=== PATIENT | female | born 1970 | race Caucasian/White ===

== ENCOUNTER 2018-09-19 17:51 | Inpatient (IN) | payer MEDICAID ==
[~2018-09-19] VITALS: Ht 167.6 cm; Wt 83.9 kg
[2018-09-19] MEDS ORDERED: NKM (18:02)
[2018-09-19 18:10] VITALS: BP 117/63
--- NOTE | 2018-09-19 18:10 | NUR ---
ED Nurse Note: pt came to ed c/o abdominal pain, N/V since today. pain 06/07. pt denies, taking medication. per pt she had apple cider vinegar today
[2018-09-19] MEDS ORDERED: Morphine Sulfate 4mg/ml Inj (IV/IM USE ONLY) IVP ONE ×2 (18:30→19:30)
[2018-09-19 18:41] LABS: APPEARANCE,URINE CLEAR; BILIRUBIN, URINE NEGATIVE (NEGATIVE); GLUCOSE, URINE (UA) NEGATIVE (NEGATIVE); KETONES,URINE 2+ (NEGATIVE); LEUKOCYTE ESTERASE ,URINE 1+ (NEGATIVE); NITRITE,URINE NEGATIVE (NEGATIVE); PH,URINE 5 (4.5-8.0); PROTEIN,URINE 2+ (NEGATIVE); UROBILINOGEN,URINE NORMAL MG/DL (0.0-1.0)
[2018-09-19 18:42] LABS: BASOPHILS % (AUTO) 0.9 % (0.0-2.0); EOSINOPHILS % (AUTO) 0.9 % (0.0-3.0); HEMATOCRIT 34.7 % (37.0-47.0); HEMOGLOBIN 10.6 G/DL (12.0-16.0); LYMPHOCYTES % (AUTO) 17.7 % (20.0-45.0); MEAN CORPUSCULAR VOLUME 81 FL (80-99); MONOCYTES % (AUTO) 5.6 % (1.0-10.0); PLATELET COUNT 391 K/UL (150-450); RED BLOOD COUNT 4.29 M/UL (4.20-5.40); RED CELL DISTRIBUTION WIDTH 14.5 % (11.6-14.8); WHITE BLOOD COUNT 16.3 K/UL (4.8-10.8)
--- NOTE | 2018-09-19 18:44 | Emergency Room Report ---
History of Present Illness General Chief Complaint: Abdominal Pain Source: Patient Present Illness HPI 48-year-old female no known medical problems other than possible gallstones, presents with right upper quadrant pain that started around 3 PM this afternoon after eating potato chips and notes, she reports nausea and vomiting multiple episodes, denies any lower abdominal pain, urinary complaints, diarrhea, constipation, reports she's never had any major surgeries otherwise has no known medical problems. Fevers chills, shortness of breath, any other complaints. She's not try medications for symptoms. Allergies: Coded Allergies: No Known Allergies (Unverified , 09/19/18) Patient History Past Medical History: see triage record Last Menstrual Period: 09/11/18 Now: No Reviewed Nursing Documentation: PMH: Agreed; PSxH: Agreed Nursing Documentation-PMH Past Medical History: No Stated History Review of Systems All Other Systems: negative except mentioned in HPI Physical Exam Vital Signs Date Time Temp Pulse Resp B/P (MAP) Pulse Ox O2 Delivery O2 Flow Rate FiO2 09/19/18 17:58 98.1 66 18 120/76 100 Room Air Sp02 EP Interpretation: reviewed, normal General Appearance: no apparent distress, alert, non-toxic Head: normocephalic Eyes: bilateral eye normal inspection, bilateral eye PERRL, bilateral eye EOMI ENT: normal ENT inspection, hearing grossly normal, normal pharynx, no angioedema, normal voice, moist mucus membranes Neck: normal inspection, full range of motion, supple, supple/symm/no masses Respiratory: chest non-tender, lungs clear, normal breath sounds, chest symmetrical, palpation of chest normal Cardiovascular #1: normal peripheral pulses, regular rate, rhythm Cardiovascular #2: 2+ radial (R), 2+ radial (L), 2+ dorsalis pedis (R), 2+ dorsalis pedis (L) Gastrointestinal: normal inspection, soft, no mass, no organomegaly, no peritonitis, non-distended, no guarding, no hernia, no pulsatile mass, no rebound, tenderness - +RUQ tenderness Rectal: deferred Genitourinary: normal inspection, no CVA tenderness Musculoskeletal: back normal, gait/station normal, normal range of motion, non- tender, no calf tenderness, Bridgette's Sign negative Neurologic: alert, responsive, protective signal installer III-XII nml as tested, motor strength/tone normal, sensory intact, speech normal Psychiatric: judgement/insight normal, memory normal, mood/affect normal Skin: normal color, no rash, warm/dry, normal turgor Lymphatic: no adenopathy Medical Decision Making Diagnostic Impression: Primary Impression: Acute cholecystitis ER Course Pat found to have wbc elevated, + gallstone in gb neck, given iv zosyn, iv KCL, Dr. Holley consulted, patient admitted to Dr. Taylor CT/MRI/US Diagnostic Results CT/MRI/US Diagnostic Results : Imaging Test Ordered: abd us Impression GS in gb neck Last Vital Signs Date Time Temp Pulse Resp B/P (MAP) Pulse Ox O2 Delivery O2 Flow Rate FiO2 09/19/18 18:10 98.1 72 14 117/63 99 Room Air Disposition: ADMITTED INPATIENT Condition: Stable EMILIO CALVERT M.D Sep 19, 2018 18:44
[2018-09-19 18:49] LABS: ALANINE AMINOTRANSFERASE 11 U/L (12-78); ALBUMIN 3.8 G/DL (3.4-5.0); ALBUMIN/GLOBULIN RATIO 1.1 (1.0-2.7); ALKALINE PHOSPHATASE 42 U/L (46-116); ANION GAP 17 mmol/L (5-15); ASPARTATE AMINO TRANSFERASE 12 U/L (15-37); BILIRUBIN,TOTAL 0.3 MG/DL (0.2-1.0); BLOOD UREA NITROGEN 8 mg/dL (7-18); CALCIUM 8.8 MG/DL (8.5-10.1); CARBON DIOXIDE 21 MMOL/L (21-32); CHLORIDE 102 MMOL/L (98-107); COLOR,URINE YELLOW; POTASSIUM 2.8 MMOL/L (3.5-5.1); SODIUM 139 MMOL/L (136-145)
--- NOTE | 2018-09-19 19:14 | NUR ---
ED Nurse Note: attempted to give telephone report to MS, unable to give report.
[2018-09-19] MEDS ORDERED: Piperacillin/Tazobactam 3.375 GM in NS 110 ML IVPB ONE (19:30)
[2018-09-19 20:55] VITALS: BP 114/76
--- NOTE | 2018-09-19 20:55 | NUR ---
ED Nurse Note: Patient transferred to med/surg unit. patient AOx4, VSS, ambulatory with steady gait, no s/s of acute distress noted at this time. Patient report given to Bonifacio BAUER. Patient sent with all personal belongings. Patient transferred on [facility], by [facility]. Patient tolerated transfer well.
--- NOTE | 2018-09-19 21:00 | NUR ---
NURSE NOTES: Pt transferred to unit via gurney w/aunt at bedside and all belongings accounted for. Pt A&Ox4, VSS, and in no apparent distress at this time. IV site intact/asymptomatic & skin intact. Pt has no c/o pain and is aware that she is to be NPO at midnight for possible surgery in the AM. Will contact MD for admission orders.
[2018-09-19 21:10] VITALS: BP 105/76
--- NOTE | 2018-09-19 21:12 | Consultation ---
History of Present Illness General Chief Complaint: Abdominal Pain Reason for Consultation: acute cholecystitis Present Illness HPI 48 year old female with known history of cholelithiasis presented with acute onset RUQ abdominal pain since lunchtime today. Pain associated with nausea and emesis. no fever or chills. In ED noted to have leukocytosis and US consistent with acute cholecystitis. lft's nml. lipase nml. Surgery called to evaluate. Allergies: Coded Allergies: No Known Allergies (Unverified , 09/19/18) Medication History Scheduled No Known Medications* (NKM - No Known Medications*), 0 ., (Reported) Patient History History Provided By: Patient, Medical Record, PMD Healthcare decision maker Resuscitation status Advanced Directive on File Past Medical/Surgical History Past Medical/Surgical History: (1) Acute cholecystitis Review of Systems All Other Systems: negative except mentioned in HPI Physical Exam General Appearance: no apparent distress, alert Lines, tubes and drains: peripheral HEENT: mucous membranes moist Neck: supple, normal inspection Cardiovascular/Chest: regular rhythm Abdomen: normal bowel sounds, non tender, soft, no organomegaly, no mass Extremities: normal inspection Skin Exam: warm/dry Neurologic: douper II-XII grossly normal Last 24 Hour Vital Signs Date Time Temp Pulse Resp B/P (MAP) Pulse Ox O2 Delivery O2 Flow Rate FiO2 09/19/18 20:55 98.1 73 18 114/76 99 Room Air 09/19/18 18:56 98.0 09/19/18 18:10 98.1 72 14 117/63 99 Room Air 09/19/18 18:10 72 14 09/19/18 17:58 98.1 66 18 120/76 100 Room Air Laboratory Tests Test 09/19/18 18:10 09/19/18 20:08 White Blood Count 16.3 K/UL (4.8-10.8) H Red Blood Count 4.29 M/UL (4.20-5.40) Hemoglobin 10.6 G/DL (12.0-16.0) L Hematocrit 34.7 % (37.0-47.0) L Mean Corpuscular Volume 81 FL (80-99) Mean Corpuscular Hemoglobin 24.7 PG (27.0-31.0) L Mean Corpuscular Hemoglobin Concent 30.6 G/DL (32.0-36.0) L Red Cell Distribution Width 14.5 % (11.6-14.8) Platelet Count 391 K/UL (150-450) Mean Platelet Volume 5.1 FL (6.5-10.1) L Neutrophils (%) (Auto) 75.0 % (45.0-75.0) Lymphocytes (%) (Auto) 17.7 % (20.0-45.0) L Monocytes (%) (Auto) 5.6 % (1.0-10.0) Eosinophils (%) (Auto) 0.9 % (0.0-3.0) Basophils (%) (Auto) 0.9 % (0.0-2.0) Urine Color Yellow Urine Appearance Clear Urine pH 5 (4.5-8.0) Urine Specific [place] 1.030 (1.005-1.035) Urine Protein 2+ (NEGATIVE) H Urine Glucose (UA) Negative (NEGATIVE) Urine Ketones 2+ (NEGATIVE) H Urine Blood 1+ (NEGATIVE) H Urine Nitrite Negative (NEGATIVE) Urine Bilirubin Negative (NEGATIVE) Urine Urobilinogen Normal MG/DL (0.0-1.0) Urine Leukocyte Esterase 1+ (NEGATIVE) H Urine RBC 2-4 /HPF (0 - 2) H Urine WBC 2-4 /HPF (0 - 2) Urine Squamous Epithelial Cells Few /LPF (NONE/OCC) Urine Calcium Oxalate Crystals Few /LPF (NONE) Urine Amorphous Sediment Few /LPF (NONE) H Urine Bacteria Moderate /HPF (NONE) H Urine HCG, Qualitative Negative (NEGATIVE) Sodium Level 139 MMOL/L (136-145) Potassium Level 2.8 MMOL/L (3.5-5.1) L Chloride Level 102 MMOL/L (98-107) Carbon Dioxide Level 21 MMOL/L (21-32) Anion Gap 17 mmol/L (5-15) H Blood Urea Nitrogen 8 mg/dL (7-18) Creatinine 1.0 MG/DL (0.55-1.30) Estimat Glomerular Filtration Rate 59.2 mL/min (>60) Glucose Level 155 MG/DL (74-106) H Calcium Level 8.8 MG/DL (8.5-10.1) Total Bilirubin 0.3 MG/DL (0.2-1.0) Aspartate Amino Transf (AST/SGOT) 12 U/L (15-37) L Alanine Aminotransferase (ALT/SGPT) 11 U/L (12-78) L Alkaline Phosphatase 42 U/L (46-116) L Total Protein 7.2 G/DL (6.4-8.2) Albumin 3.8 G/DL (3.4-5.0) Globulin 3.4 g/dL Albumin/Globulin Ratio 1.1 (1.0-2.7) Lipase 151 U/L (73-393) Prothrombin Time 10.1 SEC (9.30-11.50) Prothromb Time International Ratio 1.0 (0.9-1.1) Activated Partial Thromboplast Time 25 SEC (23-33) Height (Feet): 5 Height (Inches): 6.00 Weight (Pounds): 185 Medications Current Medications Medications (Trade) Dose Ordered Sig/Blaze Route PRN Reason Start Time Stop Time Status Last Admin Dose Admin Potassium Chloride 100 ml @ 50 mls/hr ONCE ONCE IVPB 09/19/18 19:30 09/19/18 21:29 09/19/18 20:54 Assessment/Plan Problem List: (1) Acute cholecystitis Assessment & Plan: Acute cholecystitis leukocytosis lft's nml lipase nml US noted -NPO -IV fluids -IV Abx -AM labs -Rx as written -HIDA ordered will follow with recs. thank you ICD Codes: K81.0 - Acute cholecystitis SNOMED: [id number] Damien Holley Sep 19, 2018 21:12
[2018-09-19] MEDS ORDERED: Morphine Sulfate 4mg/ml Inj (IV/IM USE ONLY) IVP PRN ×3 (21:15)
[2018-09-19] MEDS ORDERED: Mylanta II UD 30ml ORAL PRN (21:15)
[2018-09-20 00:27] VITALS: BP 111/73
[2018-09-20 04:14] VITALS: BP 98/59
[2018-09-20] MEDS: Piperacillin/Tazobactam 3.375 GM in NS 110 ML IVPB SCH ×3 (06:03→21:11)
[2018-09-20 07:14] LABS: BASOPHILS % (AUTO) 0.7 % (0.0-2.0); EOSINOPHILS % (AUTO) 0.7 % (0.0-3.0); HEMATOCRIT 31.5 % (37.0-47.0); LYMPHOCYTES % (AUTO) 19.9 % (20.0-45.0); MEAN CORPUSCULAR VOLUME 80 FL (80-99); MONOCYTES % (AUTO) 7.2 % (1.0-10.0); NEUTROPHILS % (AUTO) 71.4 % (45.0-75.0); PLATELET COUNT 288 K/UL (150-450); RED BLOOD COUNT 3.92 M/UL (4.20-5.40); RED CELL DISTRIBUTION WIDTH 15.2 % (11.6-14.8); WHITE BLOOD COUNT 8.2 K/UL (4.8-10.8)
--- NOTE | 2018-09-20 07:16 | NUR ---
HAND-OFF: Report given to JUANCARLOS Correa.
--- NOTE | 2018-09-20 07:18 | NUR ---
NURSE NOTES: Received report from Bharti BAUER. patient in bed awake, alert, oriented, verbally responsive. no distress noted. no c/o pain at this time. bed in lowest position. call light within reach. will continue to monitor.
[2018-09-20 07:24] LABS: PHOSPHORUS 3.2 MG/DL (2.5-4.9)
[2018-09-20 07:30] LABS: ALANINE AMINOTRANSFERASE 68 U/L (12-78); ALBUMIN 3.1 G/DL (3.4-5.0); ALKALINE PHOSPHATASE 40 U/L (46-116); ANION GAP 9 mmol/L (5-15); ASPARTATE AMINO TRANSFERASE 111 U/L (15-37); BILIRUBIN,TOTAL 0.6 MG/DL (0.2-1.0); BLOOD UREA NITROGEN 5 mg/dL (7-18); CALCIUM 8.2 MG/DL (8.5-10.1); CARBON DIOXIDE 24 MMOL/L (21-32); CHLORIDE 108 MMOL/L (98-107); CREATININE 0.7 MG/DL (0.55-1.30); POTASSIUM 3.7 MMOL/L (3.5-5.1); SODIUM 141 MMOL/L (136-145)
[2018-09-20 08:00] VITALS: BP 103/66
[2018-09-20] MEDS ORDERED: NS w/KCl 40mEq 1,000 ML IV SCH ×2 (08:00)
--- NOTE | 2018-09-20 10:18 | Diagnostic Imaging Report ---
Indication: Abdominal pain, abnormal liver function tests, abnormal lipase Technique: Davis-scale and duplex images of the upper abdomen were obtained. Doppler interrogation of the hepatic and pancreatic vessels Comparison: none Findings: Gallbladder demonstrates a gallstone. No gallbladder wall thickening nor pericholecystic fluid Sonographic Wilson's sign is negative. Common bile duct measures 4 mm in diameter. No intrahepatic biliary ductal dilatation. Liver demonstrates normal echogenicity, no focal abnormality. Portal vein and hepatic veins are patent. Pancreas is unremarkable. Spleen is unremarkable. Left kidney measures 11.1 cm in length. Right kidney measures 11.6 cm length. Both kidneys demonstrate normal echogenicity. There is no hydronephrosis. No focal abnormality . Non-aneurysmal abdominal aorta . Impression: Cholelithiasis. Negative for dilated ducts No other significant abnormality This agrees with the preliminary interpretation provided [facility].
--- NOTE | 2018-09-20 10:48 | GI Initial Consult Note ---
History of Present Illness General Date patient seen: Sep 20, 2018 Time patient seen: 10:42 Reason for Hospitalization: Abdominal Pain Referring physician: CHAPARRITA DICKINSON Reason for Consultation: acute cholecystitis Present Illness HPI 48-year-old female no known medical problems other than possible gallstones, presents with right upper quadrant pain that started around 3 PM this afternoon after eating potato chips and notes, she reports nausea and vomiting multiple episodes, denies any lower abdominal pain, urinary complaints, diarrhea, constipation, reports she's never had any major surgeries otherwise has no known medical problems. Fevers chills, shortness of breath, any other complaints. She's not try medications for symptoms. GI consulted for abdominal pain. Initial HPI as noted above. Patient seen, awake alert and oriented x4 no apparent distress. Denied any nausea or vomiting. Denied any constipation or diarrhea. The patient stated she had initial right upper quadrant pain which has subsided at this time. Patient recalled she had a previous similar episode, however was not as severe as the most current. The patient denies any past medical history and states this is her first time in the hospital. Patient has no history of endoscopic or colonoscopy. At the time, the patient prefers not to have any surgical intervention. Patient denies any abuse of alcohol, tobacco, or drugs. Labs reviewed; patient presents today with hypochromic anemia, elevated AST. An abdominal ultrasound was performed in the ED noted with cholelithiasis and the cystic duct. Home Meds Reported Medications No Known Medications* (NKM - No Known Medications*) ., 0 ., 0 Refills 09/19/18 Med list reviewed/reconciled: Yes Allergies: Coded Allergies: No Known Allergies (Unverified , 09/19/18) Patient History History Provided By: Patient, Medical Record PMH Narrative Past Medical History: see triage record Last Menstrual Period: 09/11/18 Now: No Reviewed Nursing Documentation: PMH: Agreed; PSxH: Agreed Nursing Documentation-PMH Past Medical History: No Stated History Social History: Denies: smoking, alcohol use, drug use, other Review of Systems All Other Systems: negative except mentioned in HPI Physical Exam Vital Signs Date Time Temp Pulse Resp B/P (MAP) Pulse Ox O2 Delivery O2 Flow Rate FiO2 09/19/18 17:58 98.1 66 18 120/76 100 Room Air Sp02 EP Interpretation: reviewed, normal Labs Laboratory Tests Test 09/19/18 18:10 09/19/18 20:08 09/20/18 05:10 White Blood Count 16.3 K/UL (4.8-10.8) H 8.2 K/UL (4.8-10.8) Red Blood Count 4.29 M/UL (4.20-5.40) 3.92 M/UL (4.20-5.40) L Hemoglobin 10.6 G/DL (12.0-16.0) L 10.0 G/DL (12.0-16.0) L Hematocrit 34.7 % (37.0-47.0) L 31.5 % (37.0-47.0) L Mean Corpuscular Volume 81 FL (80-99) 80 FL (80-99) Mean Corpuscular Hemoglobin 24.7 PG (27.0-31.0) L 25.5 PG (27.0-31.0) L Mean Corpuscular Hemoglobin Concent 30.6 G/DL (32.0-36.0) L 31.7 G/DL (32.0-36.0) L Red Cell Distribution Width 14.5 % (11.6-14.8) 15.2 % (11.6-14.8) H Platelet Count 391 K/UL (150-450) 288 K/UL (150-450) Mean Platelet Volume 5.1 FL (6.5-10.1) L 5.2 FL (6.5-10.1) L Neutrophils (%) (Auto) 75.0 % (45.0-75.0) 71.4 % (45.0-75.0) Lymphocytes (%) (Auto) 17.7 % (20.0-45.0) L 19.9 % (20.0-45.0) L Monocytes (%) (Auto) 5.6 % (1.0-10.0) 7.2 % (1.0-10.0) Eosinophils (%) (Auto) 0.9 % (0.0-3.0) 0.7 % (0.0-3.0) Basophils (%) (Auto) 0.9 % (0.0-2.0) 0.7 % (0.0-2.0) Urine Color Yellow Urine Appearance Clear Urine pH 5 (4.5-8.0) Urine Specific [place] 1.030 (1.005-1.035) Urine Protein 2+ (NEGATIVE) H Urine Glucose (UA) Negative (NEGATIVE) Urine Ketones 2+ (NEGATIVE) H Urine Blood 1+ (NEGATIVE) H Urine Nitrite Negative (NEGATIVE) Urine Bilirubin Negative (NEGATIVE) Urine Urobilinogen Normal MG/DL (0.0-1.0) Urine Leukocyte Esterase 1+ (NEGATIVE) H Urine RBC 2-4 /HPF (0 - 2) H Urine WBC 2-4 /HPF (0 - 2) Urine Squamous Epithelial Cells Few /LPF (NONE/OCC) Urine Calcium Oxalate Crystals Few /LPF (NONE) Urine Amorphous Sediment Few /LPF (NONE) H Urine Bacteria Moderate /HPF (NONE) H Urine HCG, Qualitative Negative (NEGATIVE) Sodium Level 139 MMOL/L (136-145) 141 MMOL/L (136-145) Potassium Level 2.8 MMOL/L (3.5-5.1) L 3.7 MMOL/L (3.5-5.1) Chloride Level 102 MMOL/L (98-107) 108 MMOL/L (98-107) H Carbon Dioxide Level 21 MMOL/L (21-32) 24 MMOL/L (21-32) Anion Gap 17 mmol/L (5-15) H 9 mmol/L (5-15) Blood Urea Nitrogen 8 mg/dL (7-18) 5 mg/dL (7-18) L Creatinine 1.0 MG/DL (0.55-1.30) 0.7 MG/DL (0.55-1.30) Estimat Glomerular Filtration Rate 59.2 mL/min (>60) > 60 mL/min (>60) Glucose Level 155 MG/DL (74-106) H 76 MG/DL (74-106) Calcium Level 8.8 MG/DL (8.5-10.1) 8.2 MG/DL (8.5-10.1) L Total Bilirubin 0.3 MG/DL (0.2-1.0) 0.6 MG/DL (0.2-1.0) Aspartate Amino Transf (AST/SGOT) 12 U/L (15-37) L 111 U/L (15-37) H Alanine Aminotransferase (ALT/SGPT) 11 U/L (12-78) L 68 U/L (12-78) Alkaline Phosphatase 42 U/L (46-116) L 40 U/L (46-116) L C-Reactive Protein, Quantitative < 0.4 mg/dL (0.00-0.90) Total Protein 7.2 G/DL (6.4-8.2) 6.1 G/DL (6.4-8.2) L Albumin 3.8 G/DL (3.4-5.0) 3.1 G/DL (3.4-5.0) L Globulin 3.4 g/dL 3.0 g/dL Albumin/Globulin Ratio 1.1 (1.0-2.7) 1.0 (1.0-2.7) Lipase 151 U/L (73-393) Prothrombin Time 10.1 SEC (9.30-11.50) 10.4 SEC (9.30-11.50) Prothromb Time International Ratio 1.0 (0.9-1.1) 1.0 (0.9-1.1) Activated Partial Thromboplast Time 25 SEC (23-33) 25 SEC (23-33) Phosphorus Level 3.2 MG/DL (2.5-4.9) Magnesium Level 1.7 MG/DL (1.8-2.4) L General Appearance: well appearing, no apparent distress, alert Head: normocephalic EENT: PERRL/EOMI, normal ENT inspection Neck: supple Respiratory: normal breath sounds, no respiratory distress Cardiovascular: normal rate Gastrointestinal: normal inspection, non tender, soft, normal bowel sounds, non -distended Rectal: deferred Genitourinary: no CVA tenderness Musculoskeletal: normal inspection, back normal Neurologic: normal inspection, alert, oriented x3, responsive Psychiatric: normal inspection, judgement/insight normal, memory normal Skin: normal inspection, normal color, no rash, warm/dry, palpation normal, well hydrated Lymphatic: normal inspection, no adenopathy Current Medications Current Medications Medications (Trade) Dose Ordered Sig/Blaze Route PRN Reason Start Time Stop Time Status Last Admin Dose Admin Acetaminophen (Tylenol) 650 mg Q4H PRN ORAL fever 09/19/18 21:15 10/19/18 21:14 Al Hydroxide/Mg Hydroxide (Mylanta II) 30 ml Q6H PRN ORAL dyspepsia 09/19/18 21:15 10/19/18 21:14 Dextrose (Dextrose 50%) 25 ml Q30M PRN IV Hypoglycemia 09/19/18 21:15 10/19/18 21:14 Dextrose (Dextrose 50%) 50 ml Q30M PRN IV Hypoglycemia 09/19/18 21:15 10/19/18 21:14 Diphenhydramine HCl (Benadryl) 25 mg Q6H PRN ORAL Itching/Pruritis 09/19/18 21:15 10/19/18 21:14 Famotidine (Pepcid I.v.) 20 mg Q12HR IVP 09/20/18 09:00 10/20/18 08:59 09/20/18 09:03 Morphine Sulfate (Morphine Sulfate) 1 mg Q4H PRN IVP mild pain 09/19/18 21:15 09/26/18 21:14 Morphine Sulfate (Morphine Sulfate) 2 mg Q4H PRN IVP Moderate Pain (Pain Scale 4-6) 09/19/18 21:15 09/26/18 21:14 09/20/18 02:00 Morphine Sulfate (Morphine Sulfate) 4 mg Q4H PRN IVP Severe Pain (Pain Scale 7-10) 09/19/18 21:15 09/26/18 21:14 Ondansetron HCl (Zofran) 4 mg Q6H PRN IVP Nausea & Vomiting 09/19/18 21:15 10/19/18 21:14 Piperacillin Sod/ Tazobactam Sod 3.375 gm/Sodium Chloride 110 ml @ 27.5 mls/hr EVERY 8 HOURS IVPB 09/20/18 06:00 09/27/18 05:59 09/20/18 06:03 Sodium Chloride 1,000 ml @ 100 mls/hr Q10H IV 09/20/18 08:00 10/20/18 00:00 09/20/18 09:03 Temazepam (Restoril) 15 mg HSPRN PRN ORAL Insomnia 09/19/18 21:15 09/26/18 21:14 GI: Plan Problems: (1) Abdominal pain (2) Transaminitis (3) Electrolyte imbalance (4) Acute cholecystitis Plan Abdominal ultrasound reviewed, noted with cholelithiasis. Patient is scheduled for a HIDA scan today We will consider endoscopy if necessary Follow-up surgical recommendations anemia work up OB stool r/o GI bleed monitor H&H, prn transfusions bowel regime ppi fu labs Discussed with Dr. Chen. Thank you for this patient referral, we will follow. The patient was seen and examined at bedside and all new and available data was reviewed in the patients chart. I agree with the above findings, impression and plan. (Patient seen earlier today. Signature stamp does not reflect patient encounter time.). - MD Genia BaldwinMountain Vista Medical CenterRafat BUSINESS CONTROL SPECIALIST Sep 20, 2018 10:48
--- NOTE | 2018-09-20 11:34 | NUR ---
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 99.0 HR 66 RR 18 B/P 120/76 WBC 16.3 K 2.8 UA+ KETONES,BLOOD,LEUKOCYTE ESTERASE,RBC,BACTERIA ABD US= CHOLELITHIASIS IS: ZOFRAN IV ZOSYN IV NS BOLUS X 1 LITER MORPHINE IV K-DUR PO ADMITTED TO MED/SURG @ 2054 MED/SURG STATUS
--- NOTE | 2018-09-20 12:34 | NUR ---
HIDA Scan complete.
[2018-09-20 12:36] VITALS: BP 116/72
--- NOTE | 2018-09-20 13:09 | Diagnostic Imaging Report ---
Indications: Abdominal pain Technique: IV administration 5.5 mCi 99 M technetium Choletec. Serial images obtained over the abdomen for 2 hrs . 4 mg of morphine given 65 minutes postinjection Comparison: Reference made to abdominal ultrasound 09/19/2018 Findings: Prompt tracer uptake within the liver. Extrahepatic bile ducts are seen at 10 minutes. Excretion into the duodenum demonstrated at 19 minutes. Gallbladder visualized at 7 minutes after morphine injection . Proximal small bowel loops appear dilated. Impression: Negative for evidence of cystic duct obstruction or common bile duct obstruction Possible proximal small bowel dilatation
--- NOTE | 2018-09-20 14:07 | Surgery Progress Note ---
Surgery Progress Note Subjective Symptoms: improved, pain absent, tolerating diet, passing flatus Additional Comments HIDA negative. pain resolved. no complaints. Objective Last 24 Hour Vital Signs Date Time Temp Pulse Resp B/P (MAP) Pulse Ox O2 Delivery O2 Flow Rate FiO2 09/20/18 12:36 99.4 76 18 116/72 (87) 99 09/20/18 09:00 Room Air 09/20/18 08:00 98.8 70 18 103/66 (78) 99 09/20/18 04:14 98.5 73 19 98/59 (72) 100 09/20/18 00:27 97.7 75 18 111/73 (86) 99 09/19/18 22:32 Room Air 09/19/18 21:12 97.5 09/19/18 21:10 97.5 80 17 105/76 (86) 100 09/19/18 20:55 98.1 73 18 114/76 99 Room Air 09/19/18 20:55 98.1 73 18 114/76 99 Room Air 09/19/18 18:56 98.0 09/19/18 18:10 98.1 72 14 117/63 99 Room Air 09/19/18 18:10 72 14 09/19/18 17:58 98.1 66 18 120/76 100 Room Air I&O Intake and Output 09/19/18 09/20/18 19:00 07:00 Intake Total 700 ml Balance 700 ml Intake IV Total 700 ml # Voids 1 3 Drains: none Cardiovascular: RSR Respiratory: clear Abdomen: soft, flat, non-tender, absent bowel sounds, non-distended Extremities: no cyanosis Laboratory Tests Test 09/19/18 18:10 09/19/18 20:08 09/20/18 05:10 White Blood Count 16.3 K/UL (4.8-10.8) H 8.2 K/UL (4.8-10.8) Red Blood Count 4.29 M/UL (4.20-5.40) 3.92 M/UL (4.20-5.40) L Hemoglobin 10.6 G/DL (12.0-16.0) L 10.0 G/DL (12.0-16.0) L Hematocrit 34.7 % (37.0-47.0) L 31.5 % (37.0-47.0) L Mean Corpuscular Volume 81 FL (80-99) 80 FL (80-99) Mean Corpuscular Hemoglobin 24.7 PG (27.0-31.0) L 25.5 PG (27.0-31.0) L Mean Corpuscular Hemoglobin Concent 30.6 G/DL (32.0-36.0) L 31.7 G/DL (32.0-36.0) L Red Cell Distribution Width 14.5 % (11.6-14.8) 15.2 % (11.6-14.8) H Platelet Count 391 K/UL (150-450) 288 K/UL (150-450) Mean Platelet Volume 5.1 FL (6.5-10.1) L 5.2 FL (6.5-10.1) L Neutrophils (%) (Auto) 75.0 % (45.0-75.0) 71.4 % (45.0-75.0) Lymphocytes (%) (Auto) 17.7 % (20.0-45.0) L 19.9 % (20.0-45.0) L Monocytes (%) (Auto) 5.6 % (1.0-10.0) 7.2 % (1.0-10.0) Eosinophils (%) (Auto) 0.9 % (0.0-3.0) 0.7 % (0.0-3.0) Basophils (%) (Auto) 0.9 % (0.0-2.0) 0.7 % (0.0-2.0) Urine Color Yellow Urine Appearance Clear Urine pH 5 (4.5-8.0) Urine Specific [place] 1.030 (1.005-1.035) Urine Protein 2+ (NEGATIVE) H Urine Glucose (UA) Negative (NEGATIVE) Urine Ketones 2+ (NEGATIVE) H Urine Blood 1+ (NEGATIVE) H Urine Nitrite Negative (NEGATIVE) Urine Bilirubin Negative (NEGATIVE) Urine Urobilinogen Normal MG/DL (0.0-1.0) Urine Leukocyte Esterase 1+ (NEGATIVE) H Urine RBC 2-4 /HPF (0 - 2) H Urine WBC 2-4 /HPF (0 - 2) Urine Squamous Epithelial Cells Few /LPF (NONE/OCC) Urine Calcium Oxalate Crystals Few /LPF (NONE) Urine Amorphous Sediment Few /LPF (NONE) H Urine Bacteria Moderate /HPF (NONE) H Urine HCG, Qualitative Negative (NEGATIVE) Sodium Level 139 MMOL/L (136-145) 141 MMOL/L (136-145) Potassium Level 2.8 MMOL/L (3.5-5.1) L 3.7 MMOL/L (3.5-5.1) Chloride Level 102 MMOL/L (98-107) 108 MMOL/L (98-107) H Carbon Dioxide Level 21 MMOL/L (21-32) 24 MMOL/L (21-32) Anion Gap 17 mmol/L (5-15) H 9 mmol/L (5-15) Blood Urea Nitrogen 8 mg/dL (7-18) 5 mg/dL (7-18) L Creatinine 1.0 MG/DL (0.55-1.30) 0.7 MG/DL (0.55-1.30) Estimat Glomerular Filtration Rate 59.2 mL/min (>60) > 60 mL/min (>60) Glucose Level 155 MG/DL (74-106) H 76 MG/DL (74-106) Calcium Level 8.8 MG/DL (8.5-10.1) 8.2 MG/DL (8.5-10.1) L Total Bilirubin 0.3 MG/DL (0.2-1.0) 0.6 MG/DL (0.2-1.0) Aspartate Amino Transf (AST/SGOT) 12 U/L (15-37) L 111 U/L (15-37) H Alanine Aminotransferase (ALT/SGPT) 11 U/L (12-78) L 68 U/L (12-78) Alkaline Phosphatase 42 U/L (46-116) L 40 U/L (46-116) L C-Reactive Protein, Quantitative < 0.4 mg/dL (0.00-0.90) Total Protein 7.2 G/DL (6.4-8.2) 6.1 G/DL (6.4-8.2) L Albumin 3.8 G/DL (3.4-5.0) 3.1 G/DL (3.4-5.0) L Globulin 3.4 g/dL 3.0 g/dL Albumin/Globulin Ratio 1.1 (1.0-2.7) 1.0 (1.0-2.7) Lipase 151 U/L (73-393) Prothrombin Time 10.1 SEC (9.30-11.50) 10.4 SEC (9.30-11.50) Prothromb Time International Ratio 1.0 (0.9-1.1) 1.0 (0.9-1.1) Activated Partial Thromboplast Time 25 SEC (23-33) 25 SEC (23-33) Phosphorus Level 3.2 MG/DL (2.5-4.9) Magnesium Level 1.7 MG/DL (1.8-2.4) L Plan Problems: (1) Acute cholecystitis Assessment & Plan: Acute cholecystitis leukocytosis lft's nml lipase nml US noted HIDA negative labs normal today diet d/c home f/u with pcp will follow with recs. thank you Damien Holley Sep 20, 2018 14:07
[2018-09-20 16:00] VITALS: BP 97/57
--- NOTE | 2018-09-20 16:30 | Consultation ---
DATE OF CONSULTATION: 09/20/2018 INFECTIOUS DISEASES CONSULTATION CONSULTING PHYSICIAN: Quique Hampton M.D. PRIMARY ATTENDING PHYSICIAN: Bee Taylor M.D. REASON FOR CONSULTATION: Acute cholecystitis. HISTORY OF PRESENT ILLNESS: This is a 48-year-old female admitted yesterday complaining of nausea, vomiting, right upper quadrant pain that started after lunch yesterday. The patient was found to have gallstone, had leukocytosis of 16.3 at the time of admission, today it is better, has no pain. PAST MEDICAL HISTORY: None significant, never in the hospital. ALLERGIES: No known drug allergies. MEDICATIONS: Getting Pepcid, sodium chloride, Zosyn, Tylenol, morphine, Zofran, temazepam, Mylanta, diphenhydramine. SOCIAL HISTORY: Denies alcohol, drug abuse, smoking. 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 REVIEW OF SYSTEMS: As per history of present illness. Currently no complaints. PHYSICAL EXAMINATION: VITAL SIGNS: Temperature 98.8, pulse 70, blood pressure 103/66. GENERAL APPEARANCE: No acute distress, well-developed. HEAD AND NECK: [place] conjunctiva. No oral lesion. HEART: S1 and S2 regular. LUNGS: Clear ABDOMEN: Soft and nontender. EXTREMITIES: No edema. LABORATORY AND DIAGNOSTIC DATA: WBC today is 8.2 coming down from 16.3, hemoglobin 10, hematocrit 31.5, platelet 288. Sodium 141, potassium 3.7, chloride 108, bicarb 24, BUN 5, creatinine 0.7, AST elevated 111, alkaline phosphatase is low at 40, AST is normal. Abdominal ultrasound cholelithiasis, negative for dilated ducts. IMPRESSION: 1. Cholelithiasis, acute cholecystitis. 2. The patient has anemia. RECOMMENDATION: Continue Zosyn. We will follow up HIDA scan. At the end of my exam, I thank Dr. Taylor, for involving me in the care of this patient. Quique Hampton M.D. DR: Law JOB#: [id number] CC:
--- NOTE | 2018-09-20 16:45 | NUR ---
NURSE NOTES: Patient was cleared by Dr. Holley. Notified Dr. Taylor but not dischage today with other issues. patient aware and verbally understood.
[2018-09-20] MEDS ORDERED: NS 275ml ONE (16:51)
[2018-09-20] MEDS ORDERED: Tubing IV Secondary IV ONE (16:51)
--- NOTE | 2018-09-20 17:07 | Consultation ---
History of Present Illness General Chief Complaint: Abdominal Pain Referring physician: CHAPARRITA DICKINSON Reason for Consultation: acute cholecystitis Present Illness Allergies: Coded Allergies: No Known Allergies (Unverified , 09/19/18) Medication History Scheduled No Known Medications* (NKM - No Known Medications*), 0 ., (Reported) Patient History Healthcare decision maker Resuscitation status Full Code Advanced Directive on File Physical Exam Last 24 Hour Vital Signs Date Time Temp Pulse Resp B/P (MAP) Pulse Ox O2 Delivery O2 Flow Rate FiO2 09/20/18 16:00 99.0 69 18 97/57 (70) 99 09/20/18 12:36 99.4 76 18 116/72 (87) 99 09/20/18 09:00 Room Air 09/20/18 08:00 98.8 70 18 103/66 (78) 99 09/20/18 04:14 98.5 73 19 98/59 (72) 100 09/20/18 00:27 97.7 75 18 111/73 (86) 99 09/19/18 22:32 Room Air 09/19/18 21:12 97.5 09/19/18 21:10 97.5 80 17 105/76 (86) 100 09/19/18 20:55 98.1 73 18 114/76 99 Room Air 09/19/18 20:55 98.1 73 18 114/76 99 Room Air 09/19/18 18:56 98.0 09/19/18 18:10 98.1 72 14 117/63 99 Room Air 09/19/18 18:10 72 14 09/19/18 17:58 98.1 66 18 120/76 100 Room Air Intake and Output 09/19/18 09/20/18 19:00 07:00 Intake Total 700 ml Balance 700 ml Intake IV Total 700 ml # Voids 1 3 Laboratory Tests Test 09/19/18 18:10 09/19/18 20:08 09/20/18 05:10 White Blood Count 16.3 K/UL (4.8-10.8) H 8.2 K/UL (4.8-10.8) Red Blood Count 4.29 M/UL (4.20-5.40) 3.92 M/UL (4.20-5.40) L Hemoglobin 10.6 G/DL (12.0-16.0) L 10.0 G/DL (12.0-16.0) L Hematocrit 34.7 % (37.0-47.0) L 31.5 % (37.0-47.0) L Mean Corpuscular Volume 81 FL (80-99) 80 FL (80-99) Mean Corpuscular Hemoglobin 24.7 PG (27.0-31.0) L 25.5 PG (27.0-31.0) L Mean Corpuscular Hemoglobin Concent 30.6 G/DL (32.0-36.0) L 31.7 G/DL (32.0-36.0) L Red Cell Distribution Width 14.5 % (11.6-14.8) 15.2 % (11.6-14.8) H Platelet Count 391 K/UL (150-450) 288 K/UL (150-450) Mean Platelet Volume 5.1 FL (6.5-10.1) L 5.2 FL (6.5-10.1) L Neutrophils (%) (Auto) 75.0 % (45.0-75.0) 71.4 % (45.0-75.0) Lymphocytes (%) (Auto) 17.7 % (20.0-45.0) L 19.9 % (20.0-45.0) L Monocytes (%) (Auto) 5.6 % (1.0-10.0) 7.2 % (1.0-10.0) Eosinophils (%) (Auto) 0.9 % (0.0-3.0) 0.7 % (0.0-3.0) Basophils (%) (Auto) 0.9 % (0.0-2.0) 0.7 % (0.0-2.0) Urine Color Yellow Urine Appearance Clear Urine pH 5 (4.5-8.0) Urine Specific Hurricane 1.030 (1.005-1.035) Urine Protein 2+ (NEGATIVE) H Urine Glucose (UA) Negative (NEGATIVE) Urine Ketones 2+ (NEGATIVE) H Urine Blood 1+ (NEGATIVE) H Urine Nitrite Negative (NEGATIVE) Urine Bilirubin Negative (NEGATIVE) Urine Urobilinogen Normal MG/DL (0.0-1.0) Urine Leukocyte Esterase 1+ (NEGATIVE) H Urine RBC 2-4 /HPF (0 - 2) H Urine WBC 2-4 /HPF (0 - 2) Urine Squamous Epithelial Cells Few /LPF (NONE/OCC) Urine Calcium Oxalate Crystals Few /LPF (NONE) Urine Amorphous Sediment Few /LPF (NONE) H Urine Bacteria Moderate /HPF (NONE) H Urine HCG, Qualitative Negative (NEGATIVE) Sodium Level 139 MMOL/L (136-145) 141 MMOL/L (136-145) Potassium Level 2.8 MMOL/L (3.5-5.1) L 3.7 MMOL/L (3.5-5.1) Chloride Level 102 MMOL/L (98-107) 108 MMOL/L (98-107) H Carbon Dioxide Level 21 MMOL/L (21-32) 24 MMOL/L (21-32) Anion Gap 17 mmol/L (5-15) H 9 mmol/L (5-15) Blood Urea Nitrogen 8 mg/dL (7-18) 5 mg/dL (7-18) L Creatinine 1.0 MG/DL (0.55-1.30) 0.7 MG/DL (0.55-1.30) Estimat Glomerular Filtration Rate 59.2 mL/min (>60) > 60 mL/min (>60) Glucose Level 155 MG/DL (74-106) H 76 MG/DL (74-106) Calcium Level 8.8 MG/DL (8.5-10.1) 8.2 MG/DL (8.5-10.1) L Total Bilirubin 0.3 MG/DL (0.2-1.0) 0.6 MG/DL (0.2-1.0) Aspartate Amino Transf (AST/SGOT) 12 U/L (15-37) L 111 U/L (15-37) H Alanine Aminotransferase (ALT/SGPT) 11 U/L (12-78) L 68 U/L (12-78) Alkaline Phosphatase 42 U/L (46-116) L 40 U/L (46-116) L C-Reactive Protein, Quantitative < 0.4 mg/dL (0.00-0.90) Total Protein 7.2 G/DL (6.4-8.2) 6.1 G/DL (6.4-8.2) L Albumin 3.8 G/DL (3.4-5.0) 3.1 G/DL (3.4-5.0) L Globulin 3.4 g/dL 3.0 g/dL Albumin/Globulin Ratio 1.1 (1.0-2.7) 1.0 (1.0-2.7) Lipase 151 U/L (73-393) Prothrombin Time 10.1 SEC (9.30-11.50) 10.4 SEC (9.30-11.50) Prothromb Time International Ratio 1.0 (0.9-1.1) 1.0 (0.9-1.1) Activated Partial Thromboplast Time 25 SEC (23-33) 25 SEC (23-33) Phosphorus Level 3.2 MG/DL (2.5-4.9) Magnesium Level 1.7 MG/DL (1.8-2.4) L Microbiology Date/Time Source Procedure Growth Status 09/19/18 18:10 Urine,Clean Catch Urine Culture - Preliminary NO GROWTH Resulted Height (Feet): 5 Height (Inches): 6.00 Weight (Pounds): 185 Medications Current Medications Medications (Trade) Dose Ordered Sig/Blaze Route PRN Reason Start Time Stop Time Status Last Admin Dose Admin Acetaminophen (Tylenol) 650 mg Q4H PRN ORAL fever 09/19/18 21:15 10/19/18 21:14 Al Hydroxide/Mg Hydroxide (Mylanta II) 30 ml Q6H PRN ORAL dyspepsia 09/19/18 21:15 10/19/18 21:14 Dextrose (Dextrose 50%) 25 ml Q30M PRN IV Hypoglycemia 09/19/18 21:15 10/19/18 21:14 Dextrose (Dextrose 50%) 50 ml Q30M PRN IV Hypoglycemia 09/19/18 21:15 10/19/18 21:14 Diphenhydramine HCl (Benadryl) 25 mg Q6H PRN ORAL Itching/Pruritis 09/19/18 21:15 10/19/18 21:14 Piperacillin Sod/ Tazobactam Sod 3.375 gm/Sodium Chloride 110 ml @ 27.5 mls/hr EVERY 8 HOURS IVPB 09/20/18 06:00 09/27/18 05:59 09/20/18 14:07 Temazepam (Restoril) 15 mg HSPRN PRN ORAL Insomnia 09/19/18 21:15 09/26/18 21:14 Assessment/Plan Assessment/Plan Hematology Consultation Reason for Hospitalization: Abdominal Pain Referring physician: CHAPARRITA DICKINSON Reason for Consultation: Anemia DOS: 09/20/18 HPI 48-year-old female no known medical problems other than possible gallstones, presents with right upper quadrant pain that started around 3 PM this afternoon after eating potato chips and notes, she reports nausea and vomiting multiple episodes, denies any lower abdominal pain, urinary complaints, diarrhea, constipation, reports she's never had any major surgeries otherwise has no known medical problems. Fevers chills, shortness of breath, any other complaints. She's not try medications for symptoms. GI consulted for abdominal pain. Initial HPI as noted above. Patient seen, awake alert and oriented x4 no apparent distress. Denied any nausea or vomiting. Denied any constipation or diarrhea. The patient stated she had initial right upper quadrant pain which has subsided at this time. Patient recalled she had a previous similar episode, however was not as severe as the most current. The patient denies any past medical history and states this is her first time in the hospital. Patient has no history of endoscopic or colonoscopy. At the time, the patient prefers not to have any surgical intervention. Patient denies any abuse of alcohol, tobacco, or drugs. Labs reviewed; patient presents today with hypochromic anemia, elevated AST. An abdominal ultrasound was performed in the ED noted with cholelithiasis and the cystic duct. HIDA was negative Reported Medications No Known Medications* (NKM - No Known Medications*) ., 0 ., 0 Refills 09/19/18 Med list reviewed/reconciled: Yes Allergies: Coded Allergies: No Known Allergies (Unverified , 09/19/18) Patient History History Provided By: Patient, Medical Record PMH Narrative Past Medical History: see triage record Last Menstrual Period: 09/11/18 Now: No Reviewed Nursing Documentation: PMH: Agreed; PSxH: Agreed Nursing Documentation-PMH Past Medical History: No Stated History Social History: Denies: smoking, alcohol use, drug use, other ROS: Constitutional: No fever, no chills, no night sweats, no fatigue Skin: No rashes, lumps, itchiness, dryness HEENT: No VALE, ear ache, visual changes, double vision, nosebleeds, sore throat, lumps, swollen glands Breasts: No lumps, pain, discharge Pulmonary: No cough, sputum, shortness of breath, coughing up blood, hemoptysis Cardiovascular: No chest pain, tightness, palpitations, syncope, claudication, orthopnea, PND GI: No nausea, vomiting, diarrhea, melena, hematochezia, change in appetite, abdominal pain : No dysuria, frequency, urgency, urinary incontinence, foamy urine Musculoskeletal: No joint swelling or muscle pain, trauma, back pain Neurologic: No dizziness, fainting, seizures, changes in smell or taste Psychiatric: No nervousness, stress, or depression, anxiety, hallucinations Endocrine: No weight change, heat or cold intolerance, tremor, insomnia Physical Exam General Appearance: A+O x3, NAD HEENT: normocephalic, atraumatic Neck: non-tender, normal alignment Respiratory/Chest: chest wall non-tender, lungs clear Cardiovascular/Chest: normal peripheral pulses, normal rate Abdomen: normal bowel sounds, mild ruq ttp Extremities: normal range of motion Vital Signs Date Time Temp Pulse Resp B/P (MAP) Pulse Ox O2 Delivery O2 Flow Rate FiO2 09/19/18 17:58 98.1 66 18 120/76 100 Room Air Sp02 EP Interpretation: reviewed, normal Labs Laboratory Tests Test 09/19/18 18:10 09/19/18 20:08 09/20/18 05:10 White Blood Count 16.3 K/UL (4.8-10.8) H 8.2 K/UL (4.8-10.8) Red Blood Count 4.29 M/UL (4.20-5.40) 3.92 M/UL (4.20-5.40) L Hemoglobin 10.6 G/DL (12.0-16.0) L 10.0 G/DL (12.0-16.0) L Hematocrit 34.7 % (37.0-47.0) L 31.5 % (37.0-47.0) L Mean Corpuscular Volume 81 FL (80-99) 80 FL (80-99) Mean Corpuscular Hemoglobin 24.7 PG (27.0-31.0) L 25.5 PG (27.0-31.0) L Mean Corpuscular Hemoglobin Concent 30.6 G/DL (32.0-36.0) L 31.7 G/DL (32.0-36.0) L Red Cell Distribution Width 14.5 % (11.6-14.8) 15.2 % (11.6-14.8) H Platelet Count 391 K/UL (150-450) 288 K/UL (150-450) Mean Platelet Volume 5.1 FL (6.5-10.1) L 5.2 FL (6.5-10.1) L Neutrophils (%) (Auto) 75.0 % (45.0-75.0) 71.4 % (45.0-75.0) Lymphocytes (%) (Auto) 17.7 % (20.0-45.0) L 19.9 % (20.0-45.0) L Monocytes (%) (Auto) 5.6 % (1.0-10.0) 7.2 % (1.0-10.0) Eosinophils (%) (Auto) 0.9 % (0.0-3.0) 0.7 % (0.0-3.0) Basophils (%) (Auto) 0.9 % (0.0-2.0) 0.7 % (0.0-2.0) Urine Color Yellow Urine Appearance Clear Urine pH 5 (4.5-8.0) Urine Specific [place] 1.030 (1.005-1.035) Urine Protein 2+ (NEGATIVE) H Urine Glucose (UA) Negative (NEGATIVE) Urine Ketones 2+ (NEGATIVE) H Urine Blood 1+ (NEGATIVE) H Urine Nitrite Negative (NEGATIVE) Urine Bilirubin Negative (NEGATIVE) Urine Urobilinogen Normal MG/DL (0.0-1.0) Urine Leukocyte Esterase 1+ (NEGATIVE) H Urine RBC 2-4 /HPF (0 - 2) H Urine WBC 2-4 /HPF (0 - 2) Urine Squamous Epithelial Cells Few /LPF (NONE/OCC) Urine Calcium Oxalate Crystals Few /LPF (NONE) Urine Amorphous Sediment Few /LPF (NONE) H Urine Bacteria Moderate /HPF (NONE) H Urine HCG, Qualitative Negative (NEGATIVE) Sodium Level 139 MMOL/L (136-145) 141 MMOL/L (136-145) Potassium Level 2.8 MMOL/L (3.5-5.1) L 3.7 MMOL/L (3.5-5.1) Chloride Level 102 MMOL/L (98-107) 108 MMOL/L (98-107) H Carbon Dioxide Level 21 MMOL/L (21-32) 24 MMOL/L (21-32) Anion Gap 17 mmol/L (5-15) H 9 mmol/L (5-15) Blood Urea Nitrogen 8 mg/dL (7-18) 5 mg/dL (7-18) L Creatinine 1.0 MG/DL (0.55-1.30) 0.7 MG/DL (0.55-1.30) Estimat Glomerular Filtration Rate 59.2 mL/min (>60) > 60 mL/min (>60) Glucose Level 155 MG/DL (74-106) H 76 MG/DL (74-106) Calcium Level 8.8 MG/DL (8.5-10.1) 8.2 MG/DL (8.5-10.1) L Total Bilirubin 0.3 MG/DL (0.2-1.0) 0.6 MG/DL (0.2-1.0) Aspartate Amino Transf (AST/SGOT) 12 U/L (15-37) L 111 U/L (15-37) H Alanine Aminotransferase (ALT/SGPT) 11 U/L (12-78) L 68 U/L (12-78) Alkaline Phosphatase 42 U/L (46-116) L 40 U/L (46-116) L C-Reactive Protein, Quantitative < 0.4 mg/dL (0.00-0.90) Total Protein 7.2 G/DL (6.4-8.2) 6.1 G/DL (6.4-8.2) L Albumin 3.8 G/DL (3.4-5.0) 3.1 G/DL (3.4-5.0) L Globulin 3.4 g/dL 3.0 g/dL Albumin/Globulin Ratio 1.1 (1.0-2.7) 1.0 (1.0-2.7) Lipase 151 U/L (73-393) Prothrombin Time 10.1 SEC (9.30-11.50) 10.4 SEC (9.30-11.50) Prothromb Time International Ratio 1.0 (0.9-1.1) 1.0 (0.9-1.1) Activated Partial Thromboplast Time 25 SEC (23-33) 25 SEC (23-33) Phosphorus Level 3.2 MG/DL (2.5-4.9) Magnesium Level 1.7 MG/DL (1.8-2.4) L Current Medications Medications (Trade) Dose Ordered Sig/Blaze Route PRN Reason Start Time Stop Time Status Last Admin Dose Admin Acetaminophen (Tylenol) 650 mg Q4H PRN ORAL fever 09/19/18 21:15 10/19/18 21:14 Al Hydroxide/Mg Hydroxide (Mylanta II) 30 ml Q6H PRN ORAL dyspepsia 09/19/18 21:15 10/19/18 21:14 Dextrose (Dextrose 50%) 25 ml Q30M PRN IV Hypoglycemia 09/19/18 21:15 10/19/18 21:14 Dextrose (Dextrose 50%) 50 ml Q30M PRN IV Hypoglycemia 09/19/18 21:15 10/19/18 21:14 Diphenhydramine HCl (Benadryl) 25 mg Q6H PRN ORAL Itching/Pruritis 09/19/18 21:15 10/19/18 21:14 Famotidine (Pepcid I.v.) 20 mg Q12HR IVP 09/20/18 09:00 10/20/18 08:59 09/20/18 09:03 Morphine Sulfate (Morphine Sulfate) 1 mg Q4H PRN IVP mild pain 09/19/18 21:15 09/26/18 21:14 Morphine Sulfate (Morphine Sulfate) 2 mg Q4H PRN IVP Moderate Pain (Pain Scale 4-6) 09/19/18 21:15 09/26/18 21:14 09/20/18 02:00 Morphine Sulfate (Morphine Sulfate) 4 mg Q4H PRN IVP Severe Pain (Pain Scale 7-10) 09/19/18 21:15 09/26/18 21:14 Ondansetron HCl (Zofran) 4 mg Q6H PRN IVP Nausea & Vomiting 09/19/18 21:15 10/19/18 21:14 Piperacillin Sod/ Tazobactam Sod 3.375 gm/Sodium Chloride 110 ml @ 27.5 mls/hr EVERY 8 HOURS IVPB 09/20/18 06:00 09/27/18 05:59 09/20/18 06:03 Sodium Chloride 1,000 ml @ 100 mls/hr Q10H IV 09/20/18 08:00 10/20/18 00:00 09/20/18 09:03 Temazepam (Restoril) 15 mg HSPRN PRN ORAL Insomnia 09/19/18 21:15 09/26/18 21:14 Assessment and Recs: # Anemia of chronic disease (or of iron deficiency) due to underlying chronic medical issues, multifactorial --> Anemia workup has been ordered --> No evidence of hemolysis is noted, peripheral smear has been reviewed. --> Hgb goal >7. Transfuse prn. --> Epogen or iron at this time is not particularly indicated --> Medications have been reviewed # Transaminitis - potentially related to gi issues/cholecytitits --> Hida was neg, management as per gi # Electrolyte imbalance # Weakesns and fatigue due to above # GERD -- continue ppi The timing of this note does not necessarily reflect the time of the patient was seen Greatly appreciate consultation! Justice Agarwal MD Sep 20, 2018 17:07
[2018-09-20] MEDS ORDERED: Morphine Sulfate 2mg/ml Inj IVP PRN (17:45)
[2018-09-20 17:47] LABS: FERRITIN 8 NG/ML (8-388); LACTATE DEHYDROGENASE 251 U/L (81-234)
[2018-09-20 17:51] LABS: % IRON SATURATION 15 % (15-50); IRON 47 ug/dL (50-175); TOTAL IRON BINDING CAPACITY 311 ug/dL (250-450)
[2018-09-20] MEDS ORDERED: Morphine Sulfate 4mg/ml Inj (IV/IM USE ONLY) IVP PRN ×2 (18:15)
--- NOTE | 2018-09-20 18:59 | NUR ---
NURSE NOTES: Dr Holley ordered 2 mg Morphine. Per pharmacy, there is a shortage of 2 MG and 4 MG should be ordered instead. Ordered Submitted. Endorsed incoming shift nurse not to administer 4 MG Morphine
--- NOTE | 2018-09-20 19:37 | NUR ---
HAND-OFF: Report given to JUANCARLOS olvera.
[2018-09-20 20:00] VITALS: BP 104/69
--- NOTE | 2018-09-20 21:26 | NUR ---
NURSE NOTES: Report received from Sunny BAUER. Pt is A&O x4 laying semi-fowlers in bed. No signs of pain or distress. IV site dry, intact, & flushed. Call light in reach, bed in lowest position, side rails up x2. Will continue to monitor.
[2018-09-21] VITALS: BP 97/79
[2018-09-21 04:00] VITALS: BP 118/71
--- NOTE | 2018-09-21 04:30 | History and Physical Report ---
DATE OF ADMISSION: 09/19/2018 HISTORY OF PRESENT ILLNESS: The patient is admitted for gallstones. The patient right upper quadrant pain that started a day before after eating potato chips. The patient denies coughing, but had nausea and vomiting multiple times. The patient denies constipation. Denies shortness of breath. Denies fever or chills. PAST MEDICAL HISTORY: Gastroesophageal reflux disease and history of cough. PAST SURGICAL HISTORY: None. MEDICATIONS: None. ALLERGIES: No known allergies. FAMILY HISTORY: Noncontributory. SOCIAL HISTORY: The patient has history of ongoing smoking, alcohol, and illicit drugs. REVIEW OF SYSTEMS: HEENT: Denies headaches. RESPIRATORY: Denies shortness of breath. Denies cough. CARDIOVASCULAR: Denies chest pain. GASTROINTESTINAL: Does have nausea and vomiting. Does have abdominal pain for one day . EXTREMITIES: Denies pain. 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 PHYSICAL EXAMINATION: VITAL SIGNS: Temperature 97.2, pulse 70, and blood pressure 130/70. HEENT: PERRLA. NECK: Supple. No lymphadenopathy. CHEST: Clear to auscultation. CARDIOVASCULAR: Regular rate and rhythm. GASTROINTESTINAL: Soft. Positive tenderness in the right upper quadrant. EXTREMITIES: Moves all four extremities. Reflexes equal on both sides. ASSESSMENT: Gallstones. We will order a PET scan. PLAN: I will ask Dr. Chen, Dr. Holley, and Dr. Quique Hampton of abdominal pain and rule out any infectious etiology. Bee Taylor M.D. DR: SO JOB#: [id number] CC:
[2018-09-21] MEDS: Piperacillin/Tazobactam 3.375 GM in NS 110 ML IVPB SCH ×2 (06:39→14:00)
[2018-09-21 07:12] LABS: ALANINE AMINOTRANSFERASE 171 U/L (12-78); ALBUMIN 3.1 G/DL (3.4-5.0); ALBUMIN/GLOBULIN RATIO 0.9 (1.0-2.7); ALKALINE PHOSPHATASE 81 U/L (46-116); ANION GAP 10 mmol/L (5-15); ASPARTATE AMINO TRANSFERASE 166 U/L (15-37); BILIRUBIN,TOTAL 0.9 MG/DL (0.2-1.0); BLOOD UREA NITROGEN 5 mg/dL (7-18); CALCIUM 8.5 MG/DL (8.5-10.1); CARBON DIOXIDE 25 MMOL/L (21-32); CHLORIDE 106 MMOL/L (98-107); POTASSIUM 3.9 MMOL/L (3.5-5.1); SODIUM 141 MMOL/L (136-145)
--- NOTE | 2018-09-21 07:30 | NUR ---
NURSE NOTES: Patient is in bed awake and able to verbalize needs. patient denies pain at this time. Patient is stable, no s/s distress or SOB. Patient is AOx4, breathing is even and unlabored. Patient is comfortable in bed with call light within reach. All needs met at this time. WIll continue to monitor.
--- NOTE | 2018-09-21 07:32 | NUR ---
HAND-OFF: Report given to Windy BAUER. Pt is stable.
[2018-09-21 07:38] LABS: BASOPHILS % (AUTO) 0.5 % (0.0-2.0); EOSINOPHILS % (AUTO) 1.2 % (0.0-3.0); HEMATOCRIT 31.8 % (37.0-47.0); LYMPHOCYTES % (AUTO) 12.5 % (20.0-45.0); MEAN CORPUSCULAR VOLUME 81 FL (80-99); MONOCYTES % (AUTO) 8.6 % (1.0-10.0); NEUTROPHILS % (AUTO) 77.2 % (45.0-75.0); PLATELET COUNT 272 K/UL (150-450); RED BLOOD COUNT 3.95 M/UL (4.20-5.40); RED CELL DISTRIBUTION WIDTH 14.8 % (11.6-14.8); WHITE BLOOD COUNT 9.5 K/UL (4.8-10.8)
[2018-09-21 08:00] VITALS: BP 107/80
--- NOTE | 2018-09-21 11:07 | GI Progress Note ---
Assessment/Plan Problems: (1) Transaminitis ICD Codes: R74.0 - Nonspecific elevation of levels of transaminase and lactic acid dehydrogenase [LDH] SNOMED: 753025339, [id number] (2) Abdominal pain ICD Codes: R10.9 - Unspecified abdominal pain SNOMED: 98206503 (3) Acute cholecystitis ICD Codes: K81.0 - Acute cholecystitis SNOMED: 30525013 (4) Electrolyte imbalance ICD Codes: E87.8 - Other disorders of electrolyte and fluid balance, not elsewhere classified SNOMED: 872275278 Status: stable Status Narrative Discussed with Dr. Chen Assessment/Plan New onset of transaminitis Abdominal ultrasound reviewed, noted with cholelithiasis. Negative HIDA Defer any GI procedures, symptomatic treatment Advance diet anemia work up OB stool r/o GI bleed monitor H&H, prn transfusions bowel regime ppi fu labs The patient was seen and examined at bedside and all new and available data was reviewed in the patients chart. I agree with the above findings, impression and plan. (Patient seen earlier today. Signature stamp does not reflect patient encounter time.). - Russ Chen MD Subjective Subjective States her abdominal pain has resolved Tolerating diet Denies any nausea or vomiting Objective Last 24 Hour Vital Signs Date Time Temp Pulse Resp B/P (MAP) Pulse Ox O2 Delivery O2 Flow Rate FiO2 09/21/18 09:00 Room Air 09/21/18 08:00 99.2 86 20 107/80 (89) 98 09/21/18 04:00 99.5 76 18 118/71 (87) 99 09/21/18 00:00 99.5 75 18 97/79 (85) 96 09/20/18 21:00 Room Air 09/20/18 20:00 99.5 79 18 104/69 (81) 97 09/20/18 16:00 99.0 69 18 97/57 (70) 99 09/20/18 12:36 99.4 76 18 116/72 (87) 99 Intake and Output 09/20/18 09/21/18 19:00 07:00 Intake Total 760.0 ml 360 ml Balance 760.0 ml 360 ml Intake Oral 240 ml 360 ml IV Total 520.0 ml # Voids 3 2 Laboratory Tests Test 09/20/18 19:00 1/24/19 05:05 Urine Total Protein Pending Urine Albumin (%) Pending Urine [id number] (%) Pending Urine [id number] (%) Pending Urine Beta-Globulin (%) Pending Urine Gamma Globulin (%) Pending Ur Protein Electrophoresis M-Sagar Pending Urine Protein Electrophoresis Intrp Pending White Blood Count 9.5 K/UL (4.8-10.8) Red Blood Count 3.95 M/UL (4.20-5.40) L Hemoglobin 10.0 G/DL (12.0-16.0) L Hematocrit 31.8 % (37.0-47.0) L Mean Corpuscular Volume 81 FL (80-99) Mean Corpuscular Hemoglobin 25.5 PG (27.0-31.0) L Mean Corpuscular Hemoglobin Concent 31.6 G/DL (32.0-36.0) L Red Cell Distribution Width 14.8 % (11.6-14.8) Platelet Count 272 K/UL (150-450) Mean Platelet Volume 5.6 FL (6.5-10.1) L Neutrophils (%) (Auto) 77.2 % (45.0-75.0) H Lymphocytes (%) (Auto) 12.5 % (20.0-45.0) L Monocytes (%) (Auto) 8.6 % (1.0-10.0) Eosinophils (%) (Auto) 1.2 % (0.0-3.0) Basophils (%) (Auto) 0.5 % (0.0-2.0) Sodium Level 141 MMOL/L (136-145) Potassium Level 3.9 MMOL/L (3.5-5.1) Chloride Level 106 MMOL/L (98-107) Carbon Dioxide Level 25 MMOL/L (21-32) Anion Gap 10 mmol/L (5-15) Blood Urea Nitrogen 5 mg/dL (7-18) L Creatinine 1.0 MG/DL (0.55-1.30) Estimat Glomerular Filtration Rate 59.2 mL/min (>60) Glucose Level 78 MG/DL (74-106) Calcium Level 8.5 MG/DL (8.5-10.1) Total Bilirubin 0.9 MG/DL (0.2-1.0) Aspartate Amino Transf (AST/SGOT) 166 U/L (15-37) H Alanine Aminotransferase (ALT/SGPT) 171 U/L (12-78) H Alkaline Phosphatase 81 U/L (46-116) Total Protein 6.5 G/DL (6.4-8.2) Albumin 3.1 G/DL (3.4-5.0) L Globulin 3.4 g/dL Albumin/Globulin Ratio 0.9 (1.0-2.7) L Height (Feet): 5 Height (Inches): 6.00 Weight (Pounds): 185 General Appearance: WD/WN, no apparent distress, alert Cardiovascular: normal rate Respiratory/Chest: normal breath sounds, no respiratory distress Abdominal Exam: normal bowel sounds, non tender, soft Extremities: normal range of motion, non-tender Suly Cormier NP Sep 21, 2018 11:06
[2018-09-21 12:00] VITALS: BP 108/73
--- NOTE | 2018-09-21 14:14 | General Progress Note ---
Assessment/Plan Assessment/Plan Assessment and Recs: # Anemia of chronic disease (or of iron deficiency) due to underlying chronic medical issues, multifactorial --> Anemia workup has been ordered --> No evidence of hemolysis is noted, peripheral smear has been reviewed. --> Hgb goal >7. Transfuse prn. --> Epogen or iron at this time is not particularly indicated --> Medications have been reviewed # Transaminitis - potentially related to gi issues/cholecytitits --> Hida was neg, management as per gi # Electrolyte imbalance # Weakesns and fatigue due to above # GERD -- continue ppi The timing of this note does not necessarily reflect the time of the patient was seen Greatly appreciate consultation! Subjective Constitutional: Denies: no symptoms, chills, diaphoresis, fever, malaise, weakness, other HEENT: Denies: no symptoms, eye pain, blurred vision, tearing, double vision, ear pain, ear discharge, nose pain, nose congestion, throat pain, throat swelling, mouth pain, mouth swelling, other Cardiovascular: Denies: no symptoms, chest pain, edema, irregular heart rate, lightheadedness, palpitations, syncope, other Respiratory: Denies: no symptoms, cough, orthopnea, shortness of breath, SOB with excertion, SOB at rest, sputum, stridor, wheezing, other Gastrointestinal/Abdominal: Denies: no symptoms, abdomen distended, abdominal pain, black stools, tarry stools, blood in stool, constipated, diarrhea, difficulty swallowing, nausea, poor appetite, poor fluid intake, rectal bleeding , vomiting, other Genitourinary: Denies: no symptoms, burning, discharge, frequency, flank pain, hematuria, incontinence, pain, urgency, other Neurologic/Psychiatric: Denies: no symptoms, anxiety, depressed, emotional problems, headache, numbness, paresthesia, pre-existing deficit, seizure, tingling, tremors, weakness, other Endocrine: Denies: no symptoms, excessive sweating, flushing, intolerance to cold, intolerance to heat, increased hunger, increased thirst, increased urine, unexplained weight gain, unexplained weight loss, other Hematologic/Lymphatic: Denies: no symptoms, anemia, easy bleeding, easy bruising, other Allergies: Coded Allergies: No Known Allergies (Unverified , 09/19/18) Subjective 09/21: pt is seen by bedside, awake and comfortable, no events, abdominal pain improved. Objective Last 24 Hour Vital Signs Date Time Temp Pulse Resp B/P (MAP) Pulse Ox O2 Delivery O2 Flow Rate FiO2 09/21/18 12:00 98.2 83 20 108/73 (85) 100 09/21/18 09:00 Room Air 09/21/18 08:00 99.2 86 20 107/80 (89) 98 09/21/18 04:00 99.5 76 18 118/71 (87) 99 09/21/18 00:00 99.5 75 18 97/79 (85) 96 09/20/18 21:00 Room Air 09/20/18 20:00 99.5 79 18 104/69 (81) 97 09/20/18 16:00 99.0 69 18 97/57 (70) 99 Intake and Output 09/20/18 09/21/18 19:00 07:00 Intake Total 760.0 ml 360 ml Balance 760.0 ml 360 ml Intake Oral 240 ml 360 ml IV Total 520.0 ml # Voids 3 2 Laboratory Tests 09/20/18 19:00: Urine Total Protein [Pending], Urine Albumin (%) [Pending], Urine Alpha-1- Globulins (%) [Pending], Urine Wmhtl-7-[id number] (%) [Pending], Urine Beta- Globulin (%) [Pending], Urine Gamma Globulin (%) [Pending], Ur Protein Electrophoresis M-Sagar [Pending], Urine Protein Electrophoresis Intrp [Pending] 09/21/18 05:05: White Blood Count 9.5, Red Blood Count 3.95L, Hemoglobin 10.0L, Hematocrit 31.8L , Mean Corpuscular Volume 81, Mean Corpuscular Hemoglobin 25.5L, Mean Corpuscular Hemoglobin Concent 31.6L, Red Cell Distribution Width 14.8, Platelet Count 272, Mean Platelet Volume 5.6L, Neutrophils (%) (Auto) 77.2H, Lymphocytes (%) (Auto) 12.5L, Monocytes (%) (Auto) 8.6, Eosinophils (%) (Auto) 1.2, Basophils (%) (Auto) 0.5, Sodium Level 141, Potassium Level 3.9, Chloride Level 106, Carbon Dioxide Level 25, Anion Gap 10, Blood Urea Nitrogen 5L, Creatinine 1.0, Estimat Glomerular Filtration Rate 59.2, Glucose Level 78, Calcium Level 8.5, Total Bilirubin 0.9, Aspartate Amino Transf (AST/SGOT) 166H, Alanine Aminotransferase (ALT/SGPT) 171H, Alkaline Phosphatase 81, Total Protein 6.5, Albumin 3.1L, Globulin 3.4, Albumin/Globulin Ratio 0.9L Height (Feet): 5 Height (Inches): 6.00 Weight (Pounds): 185 Objective Physical Exam General Appearance: A+O x3, NAD HEENT: normocephalic, atraumatic Neck: non-tender, normal alignment Respiratory/Chest: chest wall non-tender, lungs clear Cardiovascular/Chest: normal peripheral pulses, normal rate Abdomen: normal bowel sounds, mild ruq ttp Extremities: normal range of motion Justice Agarwal MD Sep 21, 2018 14:14
--- NOTE | 2018-09-21 14:23 | NUR ---
NURSE NOTES: Patient refused Zosyn and stated, "I want to go home". Spoke to Dr. Taylor who will visit with patient today.
--- NOTE | 2018-09-21 14:56 | Infectious Diseases Prog Note ---
Assessment/Plan Assessment/Plan A; Cholelithiasis, HIDA scan negative Elevated transaminase Nausea / Vomiting resolved P: Discontinue Zosyn Observe off antibiotic Subjective ROS Limited/Unobtainable: No Constitutional: Reports: no symptoms Respiratory: Reports: no symptoms Gastrointestinal/Abdominal: Reports: no symptoms Genitourinary: Reports: no symptoms Allergies: Coded Allergies: No Known Allergies (Unverified , 09/19/18) Objective Vital Signs Last 24 Hour Vital Signs Date Time Temp Pulse Resp B/P (MAP) Pulse Ox O2 Delivery O2 Flow Rate FiO2 09/21/18 12:00 98.2 83 20 108/73 (85) 100 09/21/18 09:00 Room Air 09/21/18 08:00 99.2 86 20 107/80 (89) 98 09/21/18 04:00 99.5 76 18 118/71 (87) 99 09/21/18 00:00 99.5 75 18 97/79 (85) 96 09/20/18 21:00 Room Air 09/20/18 20:00 99.5 79 18 104/69 (81) 97 09/20/18 16:00 99.0 69 18 97/57 (70) 99 Height (Feet): 5 Height (Inches): 6.00 Weight (Pounds): 185 General Appearance: no acute distress HEENT: mucous membranes moist Respiratory/Chest: lungs clear Cardiovascular: normal rate Abdomen: soft, non tender Extremities: no edema Neurologic/Psychiatric: alert, oriented x 3, responsive Microbiology Date/Time Source Procedure Growth Status 09/19/18 18:10 Urine,Clean Catch Urine Culture - Preliminary Mixed Gram Positive Organism Resulted Laboratory Tests Test 09/20/18 19:00 09/21/18 05:05 Urine Total Protein Pending Urine Albumin (%) Pending Urine Mtmlg-0-Sdfyyyqcf (%) Pending Urine Bjxac-1-Yttfawkin (%) Pending Urine Beta-Globulin (%) Pending Urine Gamma Globulin (%) Pending Ur Protein Electrophoresis M-Sagar Pending Urine Protein Electrophoresis Intrp Pending White Blood Count 9.5 K/UL (4.8-10.8) Red Blood Count 3.95 M/UL (4.20-5.40) L Hemoglobin 10.0 G/DL (12.0-16.0) L Hematocrit 31.8 % (37.0-47.0) L Mean Corpuscular Volume 81 FL (80-99) Mean Corpuscular Hemoglobin 25.5 PG (27.0-31.0) L Mean Corpuscular Hemoglobin Concent 31.6 G/DL (32.0-36.0) L Red Cell Distribution Width 14.8 % (11.6-14.8) Platelet Count 272 K/UL (150-450) Mean Platelet Volume 5.6 FL (6.5-10.1) L Neutrophils (%) (Auto) 77.2 % (45.0-75.0) H Lymphocytes (%) (Auto) 12.5 % (20.0-45.0) L Monocytes (%) (Auto) 8.6 % (1.0-10.0) Eosinophils (%) (Auto) 1.2 % (0.0-3.0) Basophils (%) (Auto) 0.5 % (0.0-2.0) Sodium Level 141 MMOL/L (136-145) Potassium Level 3.9 MMOL/L (3.5-5.1) Chloride Level 106 MMOL/L (98-107) Carbon Dioxide Level 25 MMOL/L (21-32) Anion Gap 10 mmol/L (5-15) Blood Urea Nitrogen 5 mg/dL (7-18) L Creatinine 1.0 MG/DL (0.55-1.30) Estimat Glomerular Filtration Rate 59.2 mL/min (>60) Glucose Level 78 MG/DL (74-106) Calcium Level 8.5 MG/DL (8.5-10.1) Total Bilirubin 0.9 MG/DL (0.2-1.0) Aspartate Amino Transf (AST/SGOT) 166 U/L (15-37) H Alanine Aminotransferase (ALT/SGPT) 171 U/L (12-78) H Alkaline Phosphatase 81 U/L (46-116) Total Protein 6.5 G/DL (6.4-8.2) Albumin 3.1 G/DL (3.4-5.0) L Globulin 3.4 g/dL Albumin/Globulin Ratio 0.9 (1.0-2.7) L Current Medications Medications (Trade) Dose Ordered Sig/Blaze Route PRN Reason Start Time Stop Time Status Last Admin Dose Admin Acetaminophen (Tylenol) 650 mg Q4H PRN ORAL fever 09/19/18 21:15 10/19/18 21:14 Al Hydroxide/Mg Hydroxide (Mylanta II) 30 ml Q6H PRN ORAL dyspepsia 09/19/18 21:15 10/19/18 21:14 Dextrose (Dextrose 50%) 25 ml Q30M PRN IV Hypoglycemia 09/19/18 21:15 10/19/18 21:14 Dextrose (Dextrose 50%) 50 ml Q30M PRN IV Hypoglycemia 09/19/18 21:15 10/19/18 21:14 Diphenhydramine HCl (Benadryl) 25 mg Q6H PRN ORAL Itching/Pruritis 09/19/18 21:15 10/19/18 21:14 Morphine Sulfate (Morphine Sulfate) 2 mg Q4H PRN IVP For Pain 09/20/18 18:15 09/27/18 17:44 Piperacillin Sod/ Tazobactam Sod 3.375 gm/Sodium Chloride 110 ml @ 27.5 mls/hr EVERY 8 HOURS IVPB 09/20/18 06:00 09/27/18 05:59 09/21/18 06:39 Temazepam (Restoril) 15 mg HSPRN PRN ORAL Insomnia 09/19/18 21:15 09/26/18 21:14 Quique Hampton MD Sep 21, 2018 14:56
--- NOTE | 2018-09-21 15:49 | NUR ---
NURSE NOTES: Patient discharged home as ordered. Patient is stable with no s/s acute distress. Patient is denies any pain or discomfort at this time. IV removed, no complications. Skin is clean, dry, and intact. Patient has all belongings. Patient was given thorough discharge instructions by RN, patient verbalized understanding. Assisted downstairs by RN, no complications.
--- NOTE | 2018-09-21 16:06 | Surgery Progress Note ---
Surgery Progress Note Subjective Additional Comments no acute events. doing okay. pain resolved. tolerating diet. Objective Last 24 Hour Vital Signs Date Time Temp Pulse Resp B/P (MAP) Pulse Ox O2 Delivery O2 Flow Rate FiO2 09/21/18 12:00 98.2 83 20 108/73 (85) 100 09/21/18 09:00 Room Air 09/21/18 08:00 99.2 86 20 107/80 (89) 98 09/21/18 04:00 99.5 76 18 118/71 (87) 99 09/21/18 00:00 99.5 75 18 97/79 (85) 96 09/20/18 21:00 Room Air 09/20/18 20:00 99.5 79 18 104/69 (81) 97 I&O Intake and Output 09/20/18 09/21/18 19:00 07:00 Intake Total 760.0 ml 360 ml Balance 760.0 ml 360 ml Intake Oral 240 ml 360 ml IV Total 520.0 ml # Voids 3 2 Cardiovascular: RSR Respiratory: clear Abdomen: soft, flat, present bowel sounds, non-distended Extremities: no tenderness, no cyanosis Laboratory Tests Test 09/20/18 19:00 09/21/18 05:05 Urine Total Protein Pending Urine Albumin (%) Pending Urine Axyhk-7-Pgxwunuoi (%) Pending Urine Mjayt-6-Vgkxknbwe (%) Pending Urine Beta-Globulin (%) Pending Urine Gamma Globulin (%) Pending Ur Protein Electrophoresis M-Sagar Pending Urine Protein Electrophoresis Intrp Pending White Blood Count 9.5 K/UL (4.8-10.8) Red Blood Count 3.95 M/UL (4.20-5.40) L Hemoglobin 10.0 G/DL (12.0-16.0) L Hematocrit 31.8 % (37.0-47.0) L Mean Corpuscular Volume 81 FL (80-99) Mean Corpuscular Hemoglobin 25.5 PG (27.0-31.0) L Mean Corpuscular Hemoglobin Concent 31.6 G/DL (32.0-36.0) L Red Cell Distribution Width 14.8 % (11.6-14.8) Platelet Count 272 K/UL (150-450) Mean Platelet Volume 5.6 FL (6.5-10.1) L Neutrophils (%) (Auto) 77.2 % (45.0-75.0) H Lymphocytes (%) (Auto) 12.5 % (20.0-45.0) L Monocytes (%) (Auto) 8.6 % (1.0-10.0) Eosinophils (%) (Auto) 1.2 % (0.0-3.0) Basophils (%) (Auto) 0.5 % (0.0-2.0) Sodium Level 141 MMOL/L (136-145) Potassium Level 3.9 MMOL/L (3.5-5.1) Chloride Level 106 MMOL/L (98-107) Carbon Dioxide Level 25 MMOL/L (21-32) Anion Gap 10 mmol/L (5-15) Blood Urea Nitrogen 5 mg/dL (7-18) L Creatinine 1.0 MG/DL (0.55-1.30) Estimat Glomerular Filtration Rate 59.2 mL/min (>60) Glucose Level 78 MG/DL (74-106) Calcium Level 8.5 MG/DL (8.5-10.1) Total Bilirubin 0.9 MG/DL (0.2-1.0) Aspartate Amino Transf (AST/SGOT) 166 U/L (15-37) H Alanine Aminotransferase (ALT/SGPT) 171 U/L (12-78) H Alkaline Phosphatase 81 U/L (46-116) Total Protein 6.5 G/DL (6.4-8.2) Albumin 3.1 G/DL (3.4-5.0) L Globulin 3.4 g/dL Albumin/Globulin Ratio 0.9 (1.0-2.7) L Plan Problems: (1) Acute cholecystitis Assessment & Plan: Acute cholecystitis leukocytosis lft's nml lipase nml US noted HIDA negative labs normal today diet d/c home f/u with pcp will follow with recs. thank you Damien Holley Sep 21, 2018 16:06
--- NOTE | 2018-09-22 09:39 | Discharge Summary ---
Discharge Summary Discharge Summary _ DATE OF ADMISSION: 09/19/2018 DATE OF DISCHARGE: 09/21/2018 DISCHARGED BY: Dr. Bee Singh CONSULTANTS: Dr. Damien Chen [facility] COURSE: Is a 48-year-old female with medical history of possible gallstones, presented to ED complaining of right upper quadrant pain that started after eating potato chips. She reported nausea, and vomiting. She denied any lower abdominal pain or urinary complaints. There was no diarrhea or constipation. She never had any major surgeries in the past. There was no fever or chills, no shortness of breath. On evaluation at ED, vital signs were stable. Blood work showed leukocytosis, with WBC elevated to 16.3. Hemoglobin was 10 and hematocrit was 34. Potassium level was 2.8. AST was 12, ALT 11, alkaline phosphatase 42,. Lipase was normal. Urinalysis showed 1+ leukocyte esterase, 2-4 RBC, 2-4 WBC 1+ blood plus ketones and negative nitrite. HCG negative. She had an ultrasound of the abdomen showed gallstones in the gallbladder neck. She was given potassium replacement. She was started on IV Zosyn. She was admitted for evaluation of acute cholecystitis. Patient was placed on n.p.o. she was given IV hydration. She was continued on Zosyn. HIDA scan was negative for cystic duct obstruction or common bile duct obstruction. Diet was advanced. She was given proton pump inhibitors. Anemia workup showed anemia from chronic disease and iron deficiency. There was new onset transaminitis. Urine culture with mixed gram-positive organisms. Zosyn was discontinued. Patient was tolerating diet and pain resolved. She was eventually discharged home. FINAL DIAGNOSES: Acute cholecystitis Gallstones Elevated transaminases/transaminitis Nausea/vomiting resolved Anemia of chronic disease due to iron deficiency Weakness and fatigue GERD Hypokalemia DISPOSITION: Patient was discharged home. DISCHARGE INSTRUCTIONS: Follow-up in a week. I have been assigned to complete a discharge summary on this account, I was not involved with the patient's management. Jody Biggs NP Sep 22, 2018 09:39
== END 2018-09-21 15:55 | disposition home or self-care (01) ==
LOC: EMR 19:30 → 3E 19:51 → EDBEDREQ 19:59
DX: K80.00 Calculus of gallbladder with acute cholecystitis without obstruction (principal); D50.9 Iron deficiency anemia, unspecified; R74.0 Nonspecific elevation of levels of transaminase and lactic acid dehydrogenase [LDH]; R11.2 Nausea with vomiting, unspecified; D63.8 Anemia in other chronic diseases classified elsewhere; R53.1 Weakness; K21.9 Gastro-esophageal reflux disease without esophagitis; E87.6 Hypokalemia
CPT/HCPCS: 36415; 76700; 78266; 80053; 81003; 81025; 82728; 82746; 83540; 83550; 83615; 83690; 83735; 84100; 84165; 85007; 85025; 85044; 85060; 85610; 85660; 85730; 86140; 86850; 86900; 86901; 87086; 96361; 96365; 96368; 96375; 96376; 99285; J2405; J8499

== ENCOUNTER 2018-11-29 12:25 | Emergency (ER) | payer MEDICAID ==
[~2018-11-29] VITALS: Ht 167.6 cm; Wt 81.6 kg
[~2018-11-29 12:25] MED LIST: NKM
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
[2018-11-29 12:52] VITALS: BP 132/82
[2018-11-29] MEDS ORDERED: Ketorolac 30mg Inj IM ONE (13:30)
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
[2018-11-29] MEDS ORDERED: LIDODERM700 M1 TOPIC (13:31)
[2018-11-29] MEDS ORDERED: IBUPROFEN600 MG ORAL (13:31)
[2018-11-29] MEDS ORDERED: ROBAXIN-750750 MG PO (13:31)
--- NOTE | 2018-11-29 13:37 | NUR ---
ED Nurse Note: PT SITTING PEACEFULLY IN BED IN NAD. AOX4. PRESCRIPTIONS AND DISCHARGE PAPERWORK EXPLAINED TO PT. PT VERBALIZES UNDERSTANDING AND ALL QUESTIONS ANSWERED. PRESCRIPTIONS AND DISCHARGE PAPERWORK GIVEN TO PT AND ID WRISTBAND REMOVED. PT WALKED OUT OF ER WITH STEADY GAIT AND ALL BELONGINGS.
== END 2018-11-29 13:38 | disposition home or self-care (01) ==
LOC: EMR 13:20
DX: M62.838 Other muscle spasm (principal); S80.12XA Contusion of left lower leg, initial encounter; V43.52XA Car driver injured in collision with other type car in traffic accident, initial encounter; Y92.410 Unspecified street and highway as the place of occurrence of the external cause
CPT/HCPCS: 96372; 99283; J1885